=== PATIENT | female | born 1955 | race Caucasian/White ===

== ENCOUNTER 2025-04-26 14:42 | Emergency (ER) | payer MEDICARE, SELFPAY ==
--- NOTE | 2025-04-26 15:09 | XR_ITS ---
FINAL REPORT CLINICAL HISTORY: left shoulder pain after fall COMPARISON: None FINDINGS: Three views of the left shoulder were obtained. There is a distal clavicle fracture, nondisplaced. No other fracture or dislocation. Mild degenerative joint disease is noted. No acute soft tissue abnormality. IMPRESSION: Nondisplaced distal clavicle fracture. Reviewed, Interpreted and Dictated by Mindi Castellanos MD Transcribed by Alexandra Molina Authenticated and [facility]
--- NOTE | 2025-04-26 15:10 | ED_ITS ---
<Statement entered by Alondra Jason MD - 04/27/25 15:39> I was consulted by the MONE, and we discussed the complexity of the problems being addressed. I approved the treatment and management plan for this patient's care in the emergency department, thus performing a substantive portion of the medical decision making. Alondra Jason MD, YONIS, FACEP Discharge Plan Disposition Patient Disposition: Home, Self-Care Condition: Fair Referrals Follow up/Referrals: Provider,Referral, MD [Primary Care Provider, Medical] - See instructions Activity Restrictions/Add. Instructions Additional Instructions/Restrictions: Today you were evaluated and diagnosed with a distal clavicle fracture. You were placed in a sling. Please call orthopedic to try to get a follow-up appointment within the next 2 to 3 weeks. You are always welcome to call Dr. Dylan aguilar's office to have a local orthopedic appointment. You may take Tylenol or Motrin [id number] for pain. Return to the ED for any worsening of your condition. Clinical Impressions Clinical Impression: Clavicle fracture Instructions Patient Instructions: Clavicle Fracture Print Language Print Language: Kazakh Discharge ED Provider: Alondra Jason General Adult HPI General Chief complaint: PAIN Stated complaint: A-O fell off porch ,shoulder pain Time Seen by Provider: 04/26/25 14:54 History of Present Illness HPI narrative: patient is a 69-year-old female who presents to the ED after falling approximately 2 feet off of a porch yesterday, landing on her left shoulder. Patient denies hitting her head, denies loss of consciousness. States she got up immediately after the fall, noticed that her left shoulder hurt. Related Data Allergies Allergy/AdvReac Type Severity Reaction Status Date / Time No Known Allergies Allergy Verified 04/26/25 15:36 [facility] Disclaimer: The information contained in this section may have been updated after the patient was seen, as this information can be updated by other users. Social History Smoking Status: Never smoker alcohol intake: never current occupational status: unemployed Travel in the last 8 weeks?: None ROS Obtained: Yes Systems reviewed as appropriate & no additional complaints except as documented Physical Exam General General appearance: alert and in no apparent distress Head Head exam: atraumatic Eye Eye exam: Present PERRL and EOMI Neck Neck exam: Present full ROM Respiratory Respiratory exam: Present normal lung sounds bilaterally Cardiovascular Cardiovascular exam: Present regular rate Abdominal Exam Abdominal exam: Present soft Extremities Exam Extremities exam: Present other (left shoulder full ROM, anterior L shoulder tenderness, distal clavicle tenderness ) Back Exam Back exam: Present full ROM; Absent tenderness Neurological Exam Neurological exam: Present alert, oriented X3, normal gait and reflexes normal; Absent motor sensory deficit Skin Skin exam: Present warm and dry Medical Decision Making Medical Records Screening: Per USPSTF and CDC recommendations, given the prevalence of disease in our region, it is our hospital?s policy to screen for HIV and viral Hepatitis for all patients aged 18 and over and those with ongoing risk factors. Jerome Inquiry Pt receiving controlled substance: No Vital Signs: 04/26/25 15:15 04/26/25 15:49 04/26/25 16:23 Temperature 97.6 F 97.6 F 97.9 F Temperature Source Oral Oral Pulse Rate 77 72 Pulse Rate [Right] 77 Respiratory Rate 14 14 14 Blood Pressure 139/60 140/69 Blood Pressure [Right Arm] 139/60 Blood Pressure Mean [Right Arm] 86 Blood Pressure Source Automatic Cuff Blood Pressure Source [Right Arm] Automatic Cuff Blood Pressure Position Supine Blood Pressure Position [Right Arm] Supine 02 Sat by Pulse Oximetry 97 97 Oxygen Delivery Method Room Air Room Air Orders (Tests/Meds): ORDERS Category Date Time Status Shoulder XR left minimum 2 views [XR shoulder LT min 2V Exams 04/26/25 15:09 Completed ] Stat Medical Decision Narrative: In summary, patient is a 69-year-old female who presents to the ED after falling approximately 2 feet off of a porch yesterday, landing on her left shoulder. Patient denies hitting her head, denies loss of consciousness. States she got up immediately after the fall, noticed that her left shoulder hurt. She states that over the course of the past 24 hours her shoulder has became sore, she has iced the area with minimal relief of pain. Denies any additional injuries. Denies hitting her head, denies loss of consciousness. Differential diagnosis includes ligamentous injury, clavicle fracture, among others. Upon initial evaluation patient is alert, oriented and cooperative. She has anterior shoulder tenderness, left distal clavicle tenderness. Discussed with patient we will proceed with x-ray. Ordered acetaminophen for symptomatic relief of pain. My informal review of the x-ray is a distal clavicle fracture with minimal displacement. Discussed the diagnosis with patient, she was placed in a sling. Patient states that she is only visiting from [place] and will return to [place] on May 07. I advised her she will need to be seen by orthopedics and offered her orthopedic follow-up here at [facility], she states she will call her orthopedic doctor in [place] to make a follow-up appointment. Discussed that she can always call Dr. Kelley's office if she changes her mind, we discussed return precautions to the ED. Discussed pain management with Tylenol or Motrin. She was hemodynamically stable and ambulatory upon leaving the ED. Critical Care Critical Care Time Critical Care Time: No
[2025-04-26 15:15] VITALS: BP 139/60; PULSE 77; RESP 14; TEMP 36.4; O2SAT 97; BMI 21.2
[2025-04-26 15:49] VITALS: BP 139/60; PULSE 77; RESP 14; TEMP 36.4; O2SAT 97
[2025-04-26 16:23] VITALS: BP 140/69; PULSE 72; RESP 14; TEMP 36.6; O2SAT 97
== END 2025-04-26 16:24 | disposition home or self-care (01) ==
PROVIDERS: Emergency Provider Student in an Organized Health Care Education/Training Program
DX: S42.009A Fracture of unspecified part of unspecified clavicle, initial encounter for closed fracture (principal); M25.512 Pain in left shoulder; W17.89XA Other fall from one level to another, initial encounter
CPT/HCPCS: 73030; 99283